=== PATIENT | female | born 1965 ===

== ENCOUNTER → 2022-08-09 08:37 | Outpatient (CLI) | payer OTHER, MEDICAID, SELFPAY ==
--- NOTE | 2022-08-09 | DI.NM.S_ITS ---
PROCEDURE: NM CHRISTIAN PERF SPECT REST & STR Rest and exercise myocardial perfusion SPECT with gated imaging and ejection fraction RADIOPHARMACEUTICAL: 12.4 mCi Tc-99m sestamibi IV at rest and 25.5 mCi Tc-99m sestamibi IV at peak exercise. A [id number] was performed. INDICATIONS: Dyspnea TECHNIQUE: Radiopharmaceutical was injected at peak stress test, and also at rest. SPECT images were obtained. SPECT myocardial perfusion images were displayed in short axis, horizontal long axis, and vertical long axis views. Gated images were reviewed using [employer] software. COMPARISON: None. CARDIAC STRESS: A standard Wilfredo treadmill exercise tolerance test was performed by the patient under the supervision of an attending staff. The patient exercised for 8 minutes and 0 seconds; 10.1 METS; functional aerobic impairment (PAO) is -12% %. Hemodynamic data: There is normal blood pressure and heart rate response to exercise stress. Patient achieved 96% of maximum predicted heart rate at peak exercise. Maximum blood pressure 138/81. Symptoms: Patient denied chest pain during exercise. EKG: No diagnostic EKG changes of ischemia; frequent PVCs noted. FINDINGS: Raw data: There is good myocardial labeling by radiotracer. No significant motion artifacts. Gevq-tc-gtkzc ratio is 0.4 (normal is less than 0.38 for sestamibi tracer, and less than 0.50 for thallium tracer). Left ventricle function: Gated images demonstrate normal left ventricle wall thickening. No segmental wall motion abnormality. No transient ischemic dilation; TID is 0.91 (normal less than 1.3). The left ventricle resting end-diastolic volume is 99 mL. Left ventricle stress ejection fraction is 72%; normal values are above 45%. Myocardial perfusion: There is normal distribution of activity in the left and right ventricular myocardium. No fixed or reversible perfusion defects. IMPRESSION: Low risk study. No evidence of exercise-induced ischemia on ECG or SPECT imaging. There is note of frequent exercise-induced PVCs. Normal hemodynamic response. Good exercise capacity. Normal LV function. Dictated by: Maryjane Brito D.O. on 08/09/2022 at 16:28 Approved by: Maryjane Brito D.O. on 08/09/2022 at 16:32
== END ==
PROVIDERS: PCP Physician Assistant; Referring Provider Physician Assistant; Visit Provider Physician Assistant
DX: R06.09 Other forms of dyspnea (principal)
CPT/HCPCS: 78452; 93017; A9502

== ENCOUNTER 2023-05-10 17:49 | Emergency (ER) | payer SELFPAY ==
[2023-05-10 18:03] VITALS: BP 136/65; PULSE 85; RESP 16; TEMP 36.6; O2SAT 96; BMI 27.4
--- NOTE | 2023-05-10 18:11 | DI.RAD.S_ITS ---
PROCEDURE: XR CHEST 2V INDICATIONS: cough/chest pain TECHNIQUE: 2 views of the chest were acquired. COMPARISON: None. FINDINGS: Surgical changes and devices: None. Lungs and pleura: Lungs are clear. No pleural effusions or pneumothorax. Mediastinum: Mediastinal contours are normal. Heart size is normal. Bones and chest wall: No suspicious bony abnormalities. Soft tissues appear unremarkable. IMPRESSION: No acute cardiopulmonary abnormality is seen. Dictated by: Jayda Escalante M.D. on 05/10/2023 at 18:39 Approved by: Jayda Escalante M.D. on 05/10/2023 at 18:40
--- NOTE | 2023-05-10 18:22 | ED.URI ---
HPI - URI/Sore Throat General Chief Complaint: Upper Respiratory Symptoms Stated Complaint: coughing, chest tightness Time Seen by Provider: 05/10/23 18:17 Source: patient Mode of arrival: Ambulatory History of Present Illness HPI Narrative: 57-year-old female presents for persistent cough. Patient states that for the last several weeks she has had a dry cough. Just prior to symptoms she had a viral illness with fever body aches and congestion. Patient is concerned that the coughing has gone on for so long and is concerned that she may have an underlying lung infection. She states she used to have reactive airway disease and is concerned that this may cause a flare. Related Data Previous Rx's Medication Instructions Recorded albuterol sulfate 90 mcg/actuation 1 puff inhalation QID PRN 05/10/23 aerosol inhaler (Ventolin HFA) shortness of breath or wheezing #8.5 grams benzonatate 200 mg capsule 200 mg PO TID PRN cough #30 caps 05/10/23 Allergies Allergy/AdvReac Type Severity Reaction Status Date / Time No Known Drug Allergies Allergy Verified 05/10/23 18:07 Review of Systems Review of Systems Narrative: Negative except as noted above Patient History Social History Smoking Status: Former smoker Smoking Status: Former smoker Substance Use Type: does not use Exam Initial Vital Signs Initial Vital Signs: Vital Signs Temperature 97.9 F 05/10/23 18:03 Pulse Rate 85 05/10/23 18:03 Respiratory Rate 16 05/10/23 18:03 Blood Pressure 136/65 05/10/23 18:03 Pulse Oximetry 96 05/10/23 18:03 Oxygen Delivery Method Room Air 05/10/23 18:03 Const: Awake, alert, no acute distress, nontoxic appearing Cardiac: regular rate, regular rhythm RESP: unlabored, clear bilaterally, no wheezing Skin: Warm, Dry, intact, no rashes Neuro: AO x3, CN II-XII grossly intact, moves all extremities Psych: affect normal, mood normal, not suicidal, not homicidal Course Orders Ordered: ED Orders 05/10/23 18:11 XR chest 2V Stat EKG-12 Lead Stat Vital Signs Vital signs: Vital Signs - 8 hr 05/10/23 18:03 05/10/23 19:03 Temperature 97.9 F Pulse Rate 85 86 Respiratory Rate 16 12 Blood Pressure 136/65 119/73 Pulse Oximetry 96 99 Oxygen Delivery Method Room Air Room Air MDM - URI/Sore Throat Differential Diagnosis Differential diagnosis: Likely upper respiratory infection, sinusitis, viral infection and bronchitis MDM Narrative Medical decision making narrative: Well-appearing patient with persistent nonproductive cough. Lungs are clear to auscultation bilaterally, patient is saturating well on room air, conversational without dyspnea. 2 view chest X ray negative for acute findings. Patient likely has post viral bronchitis. She requested an albuterol inhaler, which was sent to pharmacy of choice. Supportive care measures counseled for home Discharge Plan Departure Patient Disposition: Home Clinical Impression: Bronchitis Instructions: DI for Acute Bronchitis Prescriptions: New albuterol sulfate [Ventolin HFA] 90 mcg/actuation HFA aerosol inhaler 1 puff inhalation QID PRN (Reason: shortness of breath or wheezing) Qty: 8.5 0RF benzonatate 200 mg capsule 200 mg PO TID PRN (Reason: cough) Qty: 30 0RF Referrals: Madelyn Rhodes PA-C [Primary Care Provider] - Stand Alone Forms: Patient Portal/API
[2023-05-10 19:03] VITALS: BP 119/73; PULSE 86; RESP 12; O2SAT 99
== END 2023-05-10 19:05 | disposition home or self-care (01) ==
PROVIDERS: Emergency Provider Emergency Medicine; PCP Physician Assistant
DX: J20.9 Acute bronchitis, unspecified (principal); R07.9 Chest pain, unspecified
CPT/HCPCS: 71046; 93005; 99281; 99283